=== PATIENT | female | born 1995 | race Hispanic/Latino ===

== ENCOUNTER → 2018-06-19 10:35 | Outpatient (CLI) | payer OTHER, MEDICAID, SELFPAY ==
--- NOTE | 2018-06-19 10:38 | DI.US.S_ITS ---
PROCEDURE: US OB <= 14 WEEKS FETUS INDICATIONS: Initial/Dating US OUTSIDE/PRIOR DATING DATA: Last menstrual period (LMP): 05/04/18. LMP-based estimated date of delivery (MIGNON): 02/08/19. First dating scan (date and location): This examination. Estimated date of delivery (MIGNON) from first dating scan: 02/10/19. TECHNIQUE: Real-time scanning was performed of the fetus and maternal pelvic organs, with image documentation. Endovaginal scanning was also performed to better visualize the fetus and maternal ovaries. COMPARISON: None. FINDINGS: Embryo: Single living intrauterine fetus is present with a heart rate measured 113 beats per minute. Tyhee-rump length measures 3.6 cm, 6 weeks 2 days. Yolk sac visualized. Loree-gestational presumed hypoechoic fluid collection measuring 1.6 x 0.7 x 1.0 cm. Measurement variability in dating: +/- 4 weeks by LMP, +/- 7 days by mean sac diameter (use before 6 weeks gestation if crown-rump length not able to be measured), +/- 5 days by crown-rump length (up to 8 weeks 6 days gestation), +/- 7 days by crown-rump length (up to 13 weeks 6 days gestation). Maternal organs: Ovaries demonstrate multiple right ovarian cystic lesions measuring up to 2.5 x 2.3 x 2.4 cm.. Limited images through the kidneys demonstrate no hydronephrosis. There is nonspecific mild bilateral adnexal free fluid IMPRESSION: Single living intrauterine fetus with gestational age of 6 weeks and 2 days by today's ultrasound measurements, concordant with reported LMP as above. Small loree-gestational hemorrhage. Right ovarian simple appearing follicular change/cyst. Dictated by: Vikas Muir M.D. on 06/19/2018 at 12:25 Approved by: Vikas Muir M.D. on 06/19/2018 at 12:28
== END ==
PROVIDERS: Visit Provider Family Medicine
DX: Z34.81 Encounter for supervision of other normal pregnancy, first trimester (principal); Z3A.01 Less than 8 weeks gestation of pregnancy
CPT/HCPCS: 76801; 76817

== ENCOUNTER → 2018-06-23 11:53 | Outpatient (CLI) | payer OTHER, MEDICAID, SELFPAY ==
[2018-06-23 12:46] LABS: Appearance Urine UA CLEAR; Bilirubin Urine UA NEGATIVE (NEGATIVE); Color Urine UA YELLOW; Glucose Urine UA NEGATIVE (Negative); Ketones Urine UA NEGATIVE (NEGATIVE); Leukocyte Esterase Urine UA NEGATIVE (NEGATIVE); Nitrite Urine UA NEGATIVE (Negative); Occult Blood Urine UA NEGATIVE (Negative); Protein Urine UA NEGATIVE (Negative); Specific Gravity Urine UA 1.015 (1.000-1.035); Urobilinogen Urine UA 0.2 E.U./dL (0.2)
[2018-06-23 12:55] LABS: Add Manual Diff / Slide Review NO; Basophils Absolute Auto 0 /uL (0-100); Basophils Percent Auto 0.4 % (0-2); Eosinophils Absolute Auto 100 /uL (0-450); Eosinophils Percent Auto 1.3 % (2-4); Hemoglobin 12.6 g/dL (12.0-16.0); Lymphocytes Absolute Auto 1700 /uL (1100-4500); Lymphocytes Percent Auto 30.5 % (25-40); Mean Corpuscular HGB Conc 33.3 % (30-36); Mean Corpuscular Hemoglobin 27.4 PG (26-34); Mean Corpuscular Volume 82.2 fL (80-100); Monocytes Absolute Auto 400 /uL (0-900); Monocytes Percent Auto 7.7 % (3-14); Neutrophils Absolute Auto 3400 /uL (1500-7000); Neutrophils Percent Auto 60.1 % (50-75); Platelet Count 273 X10^3/uL (150-400); Red Blood Cell Count 4.62 X10^6/uL (4.0-5.2); Red Cell Distribution Width 16.2 % (11.6-14.8); White Blood Cell Count 5.6 X10^3/uL (4.5-11.0)
[2018-06-23 16:20] LABS: Hepatitis B Surface Antigen NEGATIVE s/c (NEGATIVE)
[2018-06-23 16:35] LABS: HIV 1 and 2 Antibody NEGATIVE (NEGATIVE); Hep C Virus Ab w/Reflex Quant NEGATIVE s/c (NEGATIVE)
[2018-06-25 14:03] LABS: RPR Screen Nonreactive (Nonreactive)
[2018-06-26 16:20] LABS: Varicella IgG Antibody < 135.00 Index (< 135.00)
== END ==
PROVIDERS: Visit Provider Family Medicine
DX: Z34.81 Encounter for supervision of other normal pregnancy, first trimester (principal)
CPT/HCPCS: 36415; 80055; 81003; 86703; 86787; 86803; 86850; 86900; 86901; 87086

== ENCOUNTER → 2018-09-02 11:47 | Outpatient (CLI) | payer OTHER, MEDICAID, SELFPAY ==
[2018-09-08 11:15] LABS: AFP, Serum 23.3 ng/mL; Calc Gestational Age 17.3; Cigarette Smoker NOT GIVEN; Donated Egg NOT GIVEN; Donor Egg Age NOT GIVEN; Estriol, Free 0.95 ng/mL; Inhibin A, Dimeric 92 pg/mL; Maternal Ethnicity HISPANIC; Maternal Weight 140 lbs; Number of Fetuses NOT GIVEN; Previous Pregnancy Down Syndro NOT GIVEN; hCG, MoM 1.28; hCG, Serum 36.4 IU/mL
== END ==
PROVIDERS: Visit Provider Family Medicine
DX: Z34.82 Encounter for supervision of other normal pregnancy, second trimester (principal); Z3A.16 16 weeks gestation of pregnancy
CPT/HCPCS: 36415; 82105; 82677; 84702; 86336

== ENCOUNTER → 2018-09-23 14:49 | Outpatient (CLI) | payer OTHER, MEDICAID, SELFPAY ==
--- NOTE | 2018-09-23 | DI.US.S_ITS ---
PROCEDURE: US OB >= 14 WEEKS FETUS INDICATIONS: 20 WEEK ANATOMICAL SURVEY OUTSIDE/PRIOR DATING DATA: Last menstrual period (LMP): 05/04/18. LMP-based estimated date of delivery (MIGNON): 02/08/19. First dating scan (date and location): This examination. Estimated date of delivery (MIGNON) from first dating scan: 02/10/19.. TECHNIQUE: Real-time scanning was performed of the fetus, with image documentation and biometric measurements. Endovaginal scanning: No COMPARISON: None. FINDINGS: General: A single living intrauterine gestation is present. Presentation: Vertex. Placenta: Placental position is posterior, and low lying with the inferior margin of placenta roughly 2.7 cm above the internal cervical os. Amniotic fluid index: 15.1 cm, normal range is 5-24 cm. heart rate: 157 beats per minute. Maternal cervical canal: 4.4 cm long. Normal lower limit is 2.5 cm. biometrics: Biparietal diameter: 19 weeks 5 days Head circumference: 19 weeks 5 days Abdominal circumference: 20 weeks 1 day Femur length: 20 weeks 0 days Estimated gestational age from initial scan: 20 weeks Composite gestational age from present scan: 19 weeks 6 days Estimated weight and percentile: 327 g; 46 percentile Measurement variability for biometric dating: +/- 7 days from 14 weeks to 15 weeks 6 days gestation, +/- 10 days from 16 weeks to 21 weeks 6 days gestation, +/- 2 weeks from 22 weeks to 27 weeks 6 days gestation, +/- 3 weeks for 28 weeks gestation or later. weight reference: 4500 g or EFW >90/95% is considered macrosomia or large for gestational age. EFW <10% is small for gestational age. EFW 5% or less is considered intra-uterine growth restriction. Anatomic survey: Neuro: Ventricles are non-dilated at less than 10 mm. Cisterna magna is normal at 3-11 mm. Cerebellum is normal in size and morphology. Nuchal skin fold: Normal at less than 6 mm between 14-21 weeks gestational age. Face: Nose and lips, facial profile are normal. Spine: No evidence for spina bifida. Heart: 4-chambered heart is present, with normal ventricular outflow tracts. Diaphragm: Diaphragm is intact. Stomach: Left-sided stomach is present. Kidneys: No hydronephrosis. Normal is less than 5 mm in 2nd trimester, less than 7 mm in 3rd trimester. Cord: 3-vessel cord has orthotopic insertion. Marginal placental cord insertion site. Bladder: Normal in size. Extremities: All 4 extremities identified. IMPRESSION: 1. Single living IUP redemonstrated and interval growth is normal. 2. Normal exam. anatomic survey. 3. Low lying placenta. Followup recommended. 4. Marginal placental cord insertion site. 5. Nuchal cord noted. Dictated by: Basilio Emmanuel [facility] Interpreted: Sabas Fang MD on 09/23/2018 at 17:38 Approved by: Sabas Fang M.D. on 09/23/2018 at 18:11
== END ==
PROVIDERS: Visit Provider Family Medicine
DX: Z36.89 Encounter for other specified antenatal screening (principal); Z3A.19 19 weeks gestation of pregnancy
CPT/HCPCS: 76811

== ENCOUNTER → 2018-11-11 12:13 | Outpatient (CLI) | payer OTHER, MEDICAID, SELFPAY ==
--- NOTE | 2018-11-11 12:16 | DI.US.S_ITS ---
PROCEDURE: US OB LIMITED INDICATIONS: EVALUATE PLACENTAL POSITION OUTSIDE/PRIOR DATING DATA: Last menstrual period (LMP): 05/04/18. LMP-based estimated date of delivery (MIGNON): 02/08/19. First dating scan (date and location): 06/19/18. Estimated date of delivery (MIGNON) from first dating scan: 02/10/19. TECHNIQUE: Real-time scanning was performed of the fetus, with image documentation and biometric measurements. Endovaginal scanning: No COMPARISON: [facility], OB <= 14 WEEKS FETUS, 06/19/2018, 10:51. [facility], OB >= 14 WEEKS FETUS, 09/23/2018, 14:58. FINDINGS: General: A single living intrauterine gestation is present. Presentation: Vertex. Placenta: Placental position is posterior, without previa. Amniotic fluid index: 14.8 cm, normal range is 5-24 cm. heart rate: 149 beats per minute. Maternal cervical canal: 3.7 cm long. Normal lower limit is 2.5 cm. Marginal placental cord insertion with the cord insertion site roughly 2.8 cm from the placental margin. IMPRESSION: Single living IUP redemonstrated and low-lying placenta has resolved with the inferior margin of the placenta 3.4 cm above the internal cervical os. Marginal placental cord insertion redemonstrated. Dictated by: Basilio Emmanuel [facility] Interpreted: Perri Bullock MD on 11/11/2018 at 14:12 Approved by: Perri Bullock M.D. on 11/11/2018 at 14:42
== END ==
PROVIDERS: Visit Provider Family Medicine
DX: O44.42 Low lying placenta NOS or without hemorrhage, second trimester (principal); Z3A.22 22 weeks gestation of pregnancy
CPT/HCPCS: 76815

== ENCOUNTER → 2018-11-17 12:07 | Outpatient (CLI) | payer OTHER, MEDICAID, SELFPAY ==
[2018-11-17 13:56] LABS: Hematocrit 31.9 % (36-46); Hemoglobin 11.2 g/dL (12.0-16.0)
[2018-11-17 14:20] LABS: GTT (PREG) 1 Hour PP 50gm Dose 98 mg/dL (76-139)
== END ==
PROVIDERS: Visit Provider Family Medicine
DX: O26.899 Other specified pregnancy related conditions, unspecified trimester (principal); Z3A.28 28 weeks gestation of pregnancy; Z67.91 Unspecified blood type, Rh negative
CPT/HCPCS: 36415; 82950; 85014; 85018; 86850

== ENCOUNTER → 2019-01-13 11:10 | Outpatient (CLI) | payer OTHER, MEDICAID, SELFPAY ==
[2019-01-14 11:53] LABS: Strep Grp B PCR NEG for Grp B Strep
== END ==
PROVIDERS: PCP Internal Medicine; Visit Provider Family Medicine
DX: Z34.90 Encounter for supervision of normal pregnancy, unspecified, unspecified trimester (principal); Z3A.36 36 weeks gestation of pregnancy
CPT/HCPCS: 87653

== ENCOUNTER 2019-02-13 12:40 | Outpatient (CLI) | payer OTHER, MEDICAID, SELFPAY ==
--- NOTE | 2019-02-13 13:41 | P.TNLD_ITS ---
Visit Information Visit Information Date of evaluation: 02/13/19 Primary OB Provider: Lata Munoz Reason for Evaluation: Yes non-stress test non-stress test reason: other (Postdates) [facility] Social History Smoking Status: Former smoker Exam Vital Signs (past 8 hours): T 36.3 BP 126/79 HR 90 Evaluation Evaluation Baseline heart rate: 130 Variability: Moderate (11-25) monitor accelerations: Present monitor decelerations: Absent Category of Tracing: I Diagnosis, Plan/Disposition Final Diagnosis (1) 40 weeks gestation of : Current Visit: Yes Status: Deleted Plan/Disposition Plan: Reactive NST for postdates. Follow up for induction 02/16/19.
== END 2019-02-13 13:52 | disposition home or self-care (01) ==
LOC: OB 02-16 11:24
PROVIDERS: PCP Internal Medicine; Visit Provider Family Medicine
DX: O48.0 Post-term pregnancy (principal); Z3A.40 40 weeks gestation of pregnancy
CPT/HCPCS: 59025; G0378; G0379

== ENCOUNTER 2019-02-14 18:46 | Inpatient (IN) | payer OTHER, MEDICAID, SELFPAY ==
[2019-02-14 20:21] VITALS: BP 132/83
--- NOTE | 2019-02-14 20:24 | P.HPOB_ITS ---
OB HPI Date/Time Date of admission: 02/14/19 Date Patient Seen: 02/14/19 Time Patient Seen: 19:50 History of Present Condition Chief complaint: eval of labor : 2 Para: 1 Estimated Date of Delivery: 02/08/19 Estimated Gestational Age (weeks): 40w6d Narrative: Mikey Juarez is a 24 year old at 40 weeks and 6 days gestation. Contractions began at approximately 6 AM but increased in intensity at 5 PM today. No loss of fluid or bleeding at home. Uncomplicated with normal labs and ultrasounds. Dating by LMP confirmed with first trimester US. Patient is O negative and received Rhogam at 29 weeks gestation. Declined influenza vaccine and Tdap. Rubella and varicella non-immune. History of Present care: good care, initiated at week # (9), number of visits (14) and pounds weight gain (30) Dating criteria: LMP confirmed by 1st trimester US Ultrasounds: normal 1st trimester US and normal mid trimester US Obstetrical complications: none Medical complications: none Preadmission Labs Blood type: 0 (-) negative -: Antibody screen: negative, GBS status: negative, HBsAG: negative, HIV: negative and RPR/VDLR: negative -: Chlamydia screen: not detected and Gonorrhea screen: not detected -: Rubella: not immune and Varicella: not immune HCT: 38.0 HCAB: negative PAP: Normal Quad screen: Normal 1 hr GTT: 98 Prior (ies) History: 04/18/2016 at 40 weeks, 8 lbs 6 oz male, breast fed 21 months. Evaluation Evaluation Variability: Moderate (11-25) monitor accelerations: Present monitor decelerations: Absent Contraction Frequency (minutes): 1 Uterine Contraction Intensity: Strong/Firm Category of Tracing: I Cervical dilation (cm): 10 Cervical effacement (%): 100 station: 0 PFSH Social History Smoking Status: Never smoker Meds Home Medications and Allergies Home Medications Medication Instructions Recorded Confirmed Type VIT/IRON FUMARATE/FA 1 tab OR Q DAY #0 04/17/16 02/14/19 History (MYNATAL-Sera CAPTAB) Allergies Allergy/AdvReac Type Severity Reaction Status Date / Time No Known Drug Allergies Allergy Unknown Verified 02/14/19 20:22 [NO KNOWN DRUG ALLERGIES] Review of Systems Constitutional Constitutional: Denies fever(s) and Denies headache(s) ENT Ears, Nose, Mouth, and Throat: No headache(s) Cardiovascular Cardiovascular: Denies shortness of breath Respiratory Respiratory: Denies cough and Denies dyspnea Neurologic Neurologic: Denies headache(s) Exam Vital Signs (past 8 hours): - 02/14/19 20:21 Blood Pressure 132/83 Const General: healthy appearing and in distress [facility] Head: normal to inspection Ears: hearing grossly normal bilaterally Nose: external nose normal Face and sinus: normal facial exam Mouth: oral mucosae normal Eyes General: appearance normal, both eyes and all related structures Neck Neck: normal visual inspection Resp Effort & Inspection: normal respiratory effort Cardio Rate: regular rate Rhythm: regular rhythm GI Other: Gravid External Female Exam: external appearance normal Manual OB Exam: dilated 10, effaced fully and station 0 Presentation: vertex Estimated Weight (lbs): 8 Back/Spine/Pelvis Back: normal to inspection Skin General: no rashes or lesions noted Extrem General: normal to inspection and no pedal edema Assessment and Plan Assessment and Plan Assessment and Plan narrative: 24 year old at 40 weeks and 6 days gestation in active labor. GBS negative. Expectant management. Patient declines epidural.
[2019-02-14 20:30] LABS: Add Manual Diff / Slide Review NO; Basophils Absolute Auto 0 /uL (0-100); Basophils Percent Auto 0.3 % (0-2); Eosinophils Absolute Auto 100 /uL (0-450); Eosinophils Percent Auto 0.8 % (2-4); Hematocrit 38.1 % (36-46); Hemoglobin 13.2 g/dL (12.0-16.0); Lymphocytes Absolute Auto 2000 /uL (1100-4500); Lymphocytes Percent Auto 18.3 % (25-40); Mean Corpuscular HGB Conc 34.7 % (30-36); Mean Corpuscular Hemoglobin 31.1 PG (26-34); Mean Corpuscular Volume 89.7 fL (80-100); Monocytes Absolute Auto 900 /uL (0-900); Monocytes Percent Auto 8.3 % (3-14); Neutrophils Absolute Auto 7800 /uL (1500-7000); Neutrophils Percent Auto 72.3 % (50-75); Platelet Count 175 X10^3/uL (150-400); Red Blood Cell Count 4.24 X10^6/uL (4.0-5.2); Red Cell Distribution Width 15.6 % (11.6-14.8); White Blood Cell Count 10.8 X10^3/uL (4.5-11.0)
--- NOTE | 2019-02-14 20:38 | PM.OBPRVD ---
Labor & Delivery Delivery date: 02/14/19 Delivery monitor: external FHT Route of delivery: L&D Laceration Description: None Estimated blood loss (mL): 200 Anesthesia type: None Narrative: BRIEF HISTORY: Patient is a 24-year-old at 40 weeks and 6 days gestation who gave on 02/14/19 at 20:01. MIGNON: 02/08/19 Hospital problems: 40 weeks of STAGE I: Labor Patient reports contractions began at approximately 6 AM on 02/14/19. She was 5-6 cm on admission at 19:00 and complete at 19:50. FHT were category 1 throughout stage 1. No analgesia for labor. STAGE II: Delivery Spontaneous vaginal delivery occurred at 20:05 with rupture of membranes at the time of delivery. Presentation was vertex and TRESSA. Infant was immediately placed on mother's abdomen. Cord was clamped and cut after one minute delay. Apgars 7 and 9. No resuscitation of the required. STAGE III: Placenta/Cord Placental delivered at 20:10 after active management and appeared intact with a 3 vessel cord. IM pitocin given after delivery of placenta. There were very superficial bilateral labial lacerations which were not repaired. Complications: None. Fundus firm at umbilicus. Hemostasis achieved. EBL: 200 mL. Needle and sponge counts were correct. The vagina was inspected and no items were left in situ. Patient was doing well with her and at bedside. [place] Baby 1: gender: Male Presentation: vertex position: Right Occiput Anterior Placenta delivery description: Spontaneous cord vessel description: 3 Vessels score (1 min): 8 score (5 min): 9
[2019-02-14] MEDS: OXYTOCIN 10 UNIT/ML VIAL 20 UNIT (20:53)
[2019-02-14] MEDS: IBUPROFEN 600 MG TABLET PO (20:53)
[2019-02-15] MEDS: IBUPROFEN 600 MG TABLET PO ×4 (03:01→23:03)
[2019-02-15] MEDS: PRENATAL VIT,CALC/IRON/FOLIC 1 TABLET 1 TAB PO (08:31)
[2019-02-15] MEDS: DOCUSATE 100 MG CAPSULE PO (08:31)
[2019-02-15 11:08] LABS: Hematocrit 36.7 % (36-46); Hemoglobin 12.7 g/dL (12.0-16.0)
--- NOTE | 2019-02-15 13:39 | PM.OBDS.1 ---
Discharge Providers Provider Date of admission: 02/14/19 18:46 Discharge Date: 02/15/19 Primary care physician: Casi Garcia Consults: 02/15/19 20:23 Consult to Auto Body Service Mechanic Routine Comment: Discharge provider: Lata Munoz DO Summary Hospital Course Date Patient Seen: 02/15/19 Time Patient Seen: 13:39 Procedures: Spontaneous vaginal delivery Hospital Course: Patient is a 24-year-old G2 now P2 day 1 after uncomplicated spontaneous vaginal delivery at 40 weeks and 6 days gestation on 02/14/19 at 8:05 p.m.. was uncomplicated. She is O negative and received RhoGAM during the . course unremarkable. Bleeding is reportedly light to moderate. Pain controlled with ibuprofen only. Breast-feeding going very well without concerns in the . No issues with bowel or bladder. Patient is ambulating, eating and passing flatus. Patient was advised to call for fevers, severe pain or bleeding through more than a pad an hour. She will follow up in clinic in 6 weeks. Peripartum Data Delivery Method: Natural Vaginal Laceration description: None complications: none [place] 1: Gender: Male Disposition of : home Discharge Diagnosis (1) 40 weeks gestation of : Status: Acute (2) Normal spontaneous vaginal delivery: Status: Acute (3) Rh negative status during : Status: Acute Time Spent with Patient Time attestation: Total time spent providing and/or coordinating discharge services: Objective Labs Result Diagrams: 02/15/19 10:57 Labs: Laboratory Results - last 24 hr 02/14/19 02/14/19 02/15/19 19:15 19:15 10:57 WBC 10.8 RBC 4.24 Hgb 13.2 Hct 38.1 MCV 89.7 MCH 31.1 MCHC 34.7 RDW 15.6 H Plt Count 175 Neut % (Auto) 72.3 Lymph % (Auto) 18.3 L [place] % (Auto) 8.3 Eos % (Auto) 0.8 L Baso % (Auto) 0.3 Neut # (Auto) 7800 H Lymph # (Auto) 2000 [place] # (Auto) 900 Eos # (Auto) 100 Baso # (Auto) 0 Blood Type O Negative Antibody Screen Negative Maternal Bleed Negative 02/15/19 10:57 WBC RBC Hgb 12.7 Hct 36.7 MCV MCH MCHC RDW Plt Count Neut % (Auto) Lymph % (Auto) [place] % (Auto) Eos % (Auto) Baso % (Auto) Neut # (Auto) Lymph # (Auto) [place] # (Auto) Eos # (Auto) Baso # (Auto) Blood Type Antibody Screen Maternal Bleed Exam Vital Signs (past 8 hours): Temperature 98.6? blood pressure 116/69 heart rate 90 respirations 17 Narrative Exam Narrative: General: Awake and alert, no acute distress. HEENT: NCAT, EOMI, moist oral mucosa CV: Regular rate and rhythm, no murmurs, rubs or gallops Lungs: CTAB, no wheezes, rales, or rhonchi Abdomen: Soft, nontender; bowel tones active; uterus firm 1 cm below umbilicus Extremities: Warm, no edema, 2+ pedal pulses bilaterally Discharge Plan Discharge Plan Patient Disposition: Home Discharge comment: Call for fevers, severe pain or bleeding through more than a pad an hour period Discharge orders & Medications Prescriptions: New docusate sodium [DOK] 100 mg Capsule 100 mg PO DAILY Qty: 30 RF: 0 ibuprofen 600 mg Tablet 600 mg PO Q6HR PRN (Reason: Pain, Mild (1-3)) Qty: 30 RF: 0 Continued VIT/IRON FUMARATE/FA (MYNATAL-Z CAPTAB) 1 tab OR Q DAY Qty: 0 RF: 0 Follow up/Referrals: Casi Garcia [Primary Care Provider] - Visit Report/Discharge Packet Visit Report Forms: Patient Portal/API, Stroke Signs & Symptoms Discharge Data Primary Care Provider: Casi Garcia Attending Provider: Shantelle Flynn Admit Date/Time: 02/14/19 18:46
[2019-02-15 17:04] VITALS: TEMP 36.8
[2019-02-16] MEDS: IBUPROFEN 600 MG TABLET PO (04:55)
--- NOTE | 2019-02-16 08:46 | PM.OBDS.1 ---
Discharge Providers Provider Date of admission: 02/14/19 18:46 Discharge Date: 02/16/19 Primary care physician: Casi Garcia Consults: 02/15/19 20:23 Consult to Fitting Room Associate Routine Comment: Discharge provider: DO Ray Stephenson Hospital Course Date Patient Seen: 02/16/19 Time Patient Seen: 08:15 Hospital Course: Patient is a 24-year-old G2 now P2 after uncomplicated spontaneous vaginal delivery. Patient stayed an additional night because of jaundice in the . She will discharge home today. Bleeding is light. Pain controlled with ibuprofen only. She is eating, ambulating, voiding and passing flatus. Patient was advised to call for fevers, severe pain or bleeding through more than a pad an hour. She will follow up in clinic in 6 weeks. Peripartum Data Infant Delivery Method: Natural Vaginal Laceration description: None complications: none Discharge Diagnosis (1) 40 weeks gestation of : Status: Acute (2) Normal spontaneous vaginal delivery: Status: Acute (3) Rh negative status during : Status: Acute Time Spent with Patient Time attestation: Total time spent providing and/or coordinating discharge services: Objective Labs Result Diagrams: 02/15/19 10:57 Labs: Laboratory Results - last 24 hr 02/15/19 02/15/19 10:57 10:57 Hgb 12.7 Hct 36.7 Maternal Bleed Negative Exam Vital Signs (past 8 hours): Temperature 98.8? blood pressure 108/65 heart rate 80 respirations 16 Narrative Exam Narrative: General: Awake and alert, no acute distress. HEENT: NCAT, EOMI, moist oral mucosa CV: Regular rate and rhythm, no murmurs, rubs or gallops Lungs: CTAB, no wheezes, rales, or rhonchi Abdomen: Soft, nontender; bowel tones active; uterus firm 1 cm below umbilicus Extremities: Warm, no edema, 2+ pedal pulses bilaterally Discharge Plan Discharge Plan Patient Disposition: Home Discharge comment: Call for fevers, severe pain or bleeding through more than a pad an hour period Discharge orders & Medications Prescriptions: New docusate sodium [DOK] 100 mg Capsule 100 mg PO DAILY Qty: 30 RF: 0 ibuprofen 600 mg Tablet 600 mg PO Q6HR PRN (Reason: Pain, Mild (1-3)) Qty: 30 RF: 0 Continued VIT/IRON FUMARATE/FA (MYNATAL-Z CAPTAB) 1 tab OR Q DAY Qty: 0 RF: 0 Follow up/Referrals: Casi Garcia [Primary Care Provider] - None Lata Munoz DO [Family Provider] - 6 Weeks (Your 6 week appt will be scheduled tomorrow 02/17 ) Visit Report/Discharge Packet Stand Alone Forms: Discharge: Care Visit Report Forms: Patient Portal/API, Stroke Signs & Symptoms Discharge Data Primary Care Provider: Casi Garcia Attending Provider: Shantelle Flynn Admit Date/Time: 02/14/19 18:46
[2019-02-16 08:52] VITALS: BP 132/83; TEMP 36.8
[2019-02-16] MEDS: RHO(D) IMMUNE GLOBULIN 1,500 UNIT SYRINGE 1500 UNIT IM (10:16)
== END 2019-02-16 10:45 | disposition home or self-care (01) | DRG 807 ==
PROVIDERS: Admitting Provider Obstetrics & Gynecology; Family Provider Family Medicine; PCP Internal Medicine; Visit Provider Obstetrics & Gynecology
DX: O48.0 Post-term pregnancy (principal); Z37.0 Single live birth; O70.0 First degree perineal laceration during delivery; Z3A.40 40 weeks gestation of pregnancy
CPT/HCPCS: 36415; 59025; 59050; 59400; 85014; 85018; 85025; 85461; 86850; 86900; 86901; G0379; J2590; J2790

== ENCOUNTER 2020-09-14 14:40 | Emergency (ER) | payer OTHER, MEDICAID, SELFPAY ==
[2020-09-14 14:46] VITALS: BP 135/79; PULSE 71; RESP 16; TEMP 37.1; O2SAT 97; BMI 27.3
--- NOTE | 2020-09-14 15:46 | ED.PREGNANCY ---
HPI - General Chief complaint: OB/Uterine Contractions Stated complaint: , has bleeding and discomfort, started Sun Time Seen by Provider: 09/14/20 14:43 Source: patient and family Mode of arrival: Ambulatory Limitations: no limitations History of Present Illness HPI Narrative: 25-year-old female nonsmoker with noncontributory medical history is a in about 6 weeks that presents with a chief complaint of some spotting and cramping over the past few days. Is not dizzy nor weak or lightheaded. She denies any fever or chills. She has no chest pain or shortness of breath. She states she has cramping only and not a unilateral persistent pain. She denies any heavy bleeding and certainly is not saturating more than 1 pad per hour or even close. She has no dysuria, frequency or urgency. MD Complaint: vaginal bleeding Onset (ago): day(s) Pain Consistency: intermittent Location: pelvis Severity: mild Quality: Cramping Relieving factors: none Exacerbating factors: none Associated symptoms: denies other symptoms Vaginal bleeding: light Related Data Home Medications Medication Instructions Recorded Confirmed VIT/IRON FUMARATE/FA 1 tab OR Q DAY #0 04/17/16 02/14/19 (MYNATAL-Z CAPTAB) Previous Rx's Medication Instructions Recorded docusate sodium [DOK] 100 mg PO DAILY #30 cap 02/15/19 ibuprofen 600 mg PO Q6HR PRN #30 tab 02/15/19 norgestimate 0.25 mg-ethinyl 1 tab PO DAILY #84 tab 03/22/20 estradiol 35 mcg tablet Allergies Allergy/AdvReac Type Severity Reaction Status Date / Time No Known Drug Allergies Allergy Unknown Verified 02/14/19 20:22 [NO KNOWN DRUG ALLERGIES] Review of Systems Constitutional Constitutional: Denies chills, Denies fatigue, Denies fever(s), Denies frequent falls, Denies lethargy and Denies weakness Eyes Eyes: Denies change in vision, Denies eye discharge, Denies irritation and Denies loss of vision ENT Ears, Nose, Mouth, and Throat: Denies change in voice, Denies dizziness, Denies neck pain, Denies sore throat and Denies throat swelling Cardiovascular Cardiovascular: Denies chest pain, Denies irregular heart rhythm, Denies lightheadedness, Denies palpitations, Denies dyspnea, Denies dyspnea on exertion and Denies orthopnea Respiratory Respiratory: Denies cough, Denies dyspnea, Denies dyspnea on exertion and Denies wheezing Gastrointestinal Gastrointestinal: Denies abdominal pain, Denies change in bowel habits, Denies diarrhea, Denies nausea and Denies vomiting Genitourinary Genitourinary: Reports abnormal vaginal bleeding Musculoskeletal Musculoskeletal: Denies neck pain and Denies numbness Integumentary/Breasts Skin/Breast: Denies pruritus, Denies erythema, Denies rash and Denies wounds Neurologic Neurologic: Denies behavioral changes, Denies confusion, Denies dizziness, Denies frequent falls, Denies loss of vision, Denies numbness and Denies weakness Psychiatric Psychiatric: Denies anxiety, Denies behavioral changes, Denies confusion, Denies depression, Denies homicidal ideation and Denies suicidal ideation Endocrine Endocrine: Denies fatigue, Denies flushing and Denies palpitations Hematologic/Lymphatic Hematologic/Lymphatic: Denies easy bruising Allergic/Immunologic Allergic/Immunologic: Denies urticaria, Denies throat swelling and Denies wheezing Exam Narrative Exam Narrative: GENERAL: [25] year old patient appears stated age. Well-developed patient, in mild distress. HEAD: Atraumatic. Normocephalic. EYES: Pupils equal round and reactive. Extraocular motions intact. No scleral icterus. No injection or drainage. ENT: Nose without bleeding, purulent drainage. Throat without erythema, tonsillar hypertrophy or exudate. Airway patent. NECK: Trachea midline. Non tender CARDIOVASCULAR: Regular rate and rhythm without murmurs, gallops, or rubs. RESPIRATORY: Clear to auscultation. Breath sounds equal bilaterally. No wheezes, rales, or rhonchi. GASTROINTESTINAL: Abdomen soft, non-tender, nondistended. EXTREMITIES: No edema or joint tenderness. BACK: Nontender without deformity or crepitance. No flank tenderness. NEURO: AOx3. SKIN: No rash or erythema of visible areas Initial Vital Signs Initial Vital Signs: Vital Signs Temperature 98.7 F 09/14/20 14:46 Pulse Rate 71 09/14/20 14:46 Respiratory Rate 16 09/14/20 14:46 Blood Pressure 135/79 09/14/20 14:46 Pulse Oximetry 97 09/14/20 14:46 Course Orders Ordered: ED Orders 09/14/20 15:56 ABO RH Type Stat HCG Quantitative /Beta subunit Stat 09/14/20 16:37 OB <= 14 weeks fetus Stat Discontinued Medications Rho Immune Globulin (Rho(D) Immune Globulin 1,500 Unit Syringe) 1,500 unit IM NOW ONE Stop: 09/14/20 18:04 Last Admin: 09/14/20 18:29 Dose: 1,500 unit Documented by: Vital Signs Vital signs: Vital Signs - 8 hr 09/14/20 14:46 09/14/20 17:17 Temperature 98.7 F Pulse Rate 71 83 Respiratory Rate 16 14 Blood Pressure 135/79 129/69 Pulse Oximetry 97 100 MDM - OB/Uterine Contractions Lab Data Labs: Lab Results 09/14/20 09/14/20 Range/Units 15:56 15:56 HCG, Quant 3001.0 mIU/mL Blood Type O Negative Point of Care Testing Test Results Positive Urine Dip Bedside Urine Glucose Negative Bedside Urine Bilirubin - Negative Bedside Urine Ketone - Negative Urine Specific [place] 1.030 Bedside Urine Occult Blood - Negative Bedside Urine pH 6.0 Bedside Urine Protein - Negative Bedside Urine Urobilinogen - Negative Bedside Urine Nitrite - Negative Bedside Urine Leukocytes - Negative Esterase Discharge Plan Departure Patient Disposition: Home Clinical Impression: Abnormal vaginal bleeding Rh negative status during Qualifiers: Trimester: first trimester Qualified Code(s): O26.891 - Other specified related conditions, first trimester Instructions: DI for Miscarriage Activity Restrictions/Additional Instructions: *You have been diagnosed with [vaginal bleeding in 1st trimester, there is no evidence of ectopic but some suggestion that this could be early miscarriage] *What to do: *Please continue to take your regular medications as directed. [ ] New medication prescriptions sent to your pharmacy: [ ] [ ] New medication written as a paper prescription [ ] No new medications given *Please follow up with your OB provider in 2-3 days, call for an appointment. Let them know you were seen in the Emergency Department and that we ask that you be seen in follow up. We will electronically transmit a record of today's note if your PCP is in our system *If you do not have a primary care provider please contact the [facility] Resource line at [phone]. They will ask some questions about your medical history and help get you set up with a doctor in the community. *Return to Emergency Department if you should have any new, worsening or concerning symptoms, such as [fever greater than 101 F, shaking chills, worsening pain, persistent vomiting or other bothersome symptoms] Prescriptions: No Action VIT/IRON FUMARATE/FA (MYNATAL-Z CAPTAB) 1 tab OR Q DAY Qty: 0 RF: 0 norgestimate-ethinyl estradiol [Sprintec (28)] 0.25-35 mg-mcg tablet 1 tab PO DAILY Qty: 84 RF: 3 docusate sodium [DOK] 100 mg Capsule 100 mg PO DAILY Qty: 30 RF: 0 ibuprofen 600 mg Tablet 600 mg PO Q6HR PRN (Reason: Pain, Mild (1-3)) Qty: 30 RF: 0 Referrals: Casi Garcia MD [Primary Care Provider] - Lata Munoz DO [Family Provider] -
--- NOTE | 2020-09-14 16:37 | DI.US.S_ITS ---
PROCEDURE: US OB <= 14 WEEKS FETUS INDICATIONS: at 6 weeks, with spotting and cramping OUTSIDE/PRIOR DATING DATA: Last menstrual period (LMP): 07/25/2020. LMP-based estimated date of delivery (MIGNON): 04/13/2020. First dating scan (date and location): Not applicable Estimated date of delivery (MIGN[place]) from first dating scan: Not applicable TECHNIQUE: Real-time scanning was performed of the fetus and maternal pelvic organs, with image documentation. Endovaginal scanning was also performed to better visualize the fetus and maternal ovaries. COMPARISON: None from this FINDINGS: Embryo: An intrauterine gestational sac is seen, with a mean gestational sac diameter of 5 mm, which corresponds to an estimated gestational age of 5 weeks 2 days. No contents can be seen at this time. No pole is seen. No heartbeat is detected. Measurement variability in dating: +/- 4 weeks by LMP, +/- 7 days by mean sac diameter (use before 6 weeks gestation if crown-rump length not able to be measured), +/- 5 days by crown-rump length (up to 8 weeks 6 days gestation), +/- 7 days by crown-rump length (up to 13 weeks 6 days gestation). Maternal organs: Ovaries are unremarkable. The endometrial stripe is thickened, hypervascular, and irregular. IMPRESSION: These imaging findings are most compatible with a spontaneous miscarriage in progress. Differential diagnosis includes early normal , yet this is considered to be less likely. Close clinical followup, with serial beta-hCG and serial ultrasound are recommended, if clinically appropriate. Thickened, hypervascular, irregular endometrial stripe. Follow-up ultrasound is recommended. Dictated by: Kaushik Kimble M.D. on 09/14/2020 at 16:31 Approved by: Kaushik Kimble M.D. on 09/14/2020 at 16:34
[2020-09-14 17:17] VITALS: BP 129/69; PULSE 83; RESP 14; O2SAT 100
[2020-09-14] MEDS: RHO(D) IMMUNE GLOBULIN 1,500 UNIT SYRINGE 1500 UNIT IM (18:29)
[2020-09-14 18:44] VITALS: BP 122/81; PULSE 80; RESP 18; O2SAT 100
== END 2020-09-14 18:45 | disposition home or self-care (01) ==
PROVIDERS: Emergency Provider Emergency Medicine; Family Provider Family Medicine; PCP Internal Medicine
DX: O20.9 Hemorrhage in early pregnancy, unspecified (principal); O26.891 Other specified pregnancy related conditions, first trimester; Z3A.01 Less than 8 weeks gestation of pregnancy
CPT/HCPCS: 36415; 76801; 76817; 81003; 81025; 84702; 86900; 86901; 96372; 99283; 99284; J2790

== ENCOUNTER → 2020-09-16 10:27 | Outpatient (CLI) | payer OTHER, MEDICAID, SELFPAY ==
[2020-09-16 12:02] LABS: HCG Quantitative /Beta subunit 4003.9 mIU/mL
== END ==
PROVIDERS: Family Provider Family Medicine; Referring Provider Specialist; Visit Provider Specialist
DX: O20.9 Hemorrhage in early pregnancy, unspecified (principal)
CPT/HCPCS: 36415; 84702

== ENCOUNTER → 2020-12-15 12:24 | Outpatient (CLI) | payer OTHER, MEDICAID, SELFPAY ==
[2020-12-15 13:26] LABS: COVID19 -Nasal RAPID Negative (Negative)
== END ==
PROVIDERS: Family Provider Family Medicine; Visit Provider Nurse Practitioner
DX: Z20.822 Contact with and (suspected) exposure to COVID-19 (principal)
CPT/HCPCS: 87635

== ENCOUNTER 2024-01-14 16:28 | Emergency (ER) | payer MEDICAID, SELFPAY ==
[2024-01-14 16:32] VITALS: BP 161/84; PULSE 83; RESP 18; TEMP 36.9; O2SAT 99; BMI 29.9
--- NOTE | 2024-01-14 17:21 | DI.RAD.S_ITS ---
PROCEDURE: XR CHEST 1V INDICATIONS: chest pain TECHNIQUE: One view of the chest was acquired. COMPARISON: None. FINDINGS: Surgical changes and devices: None. Lungs and pleura: Lungs are clear. No pleural effusions or pneumothorax. Mediastinum: Mediastinal contours appear normal. Heart size is normal. Bones and chest wall: No suspicious bony lesions. Overlying soft tissues appear unremarkable. IMPRESSION: No acute cardiopulmonary abnormality is seen. Dictated by: Rohit Barreto M.D. on 01/14/2024 at 20:04 Approved by: Rohit Barreto M.D. on 01/14/2024 at 20:04
--- NOTE | 2024-01-14 18:32 | EKG_ITS ---
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
[2024-01-14 19:16] LABS: Add Manual Diff / Slide Review NO; Basophils Absolute Auto 0 /uL (0-100); Basophils Percent Auto 0.3 % (0-2); Eosinophils Absolute Auto 200 /uL (0-450); Eosinophils Percent Auto 2.1 % (2-4); Hematocrit 39.2 % (36-46); Hemoglobin 13.4 g/dL (12.0-16.0); Lymphocytes Absolute Auto 1800 /uL (1100-4500); Lymphocytes Percent Auto 22.5 % (25-40); Mean Corpuscular HGB Conc 34.2 % (30-36); Mean Corpuscular Hemoglobin 30.2 PG (26-34); Mean Corpuscular Volume 88.4 fL (80-100); Monocytes Absolute Auto 400 /uL (0-900); Monocytes Percent Auto 5.6 % (3-14); Neutrophils Absolute Auto 5500 /uL (1500-7000); Neutrophils Percent Auto 69.5 % (50-75); Platelet Count 245 X10^3/uL (150-400); Red Blood Cell Count 4.43 X10^6/uL (4.0-5.2); Red Cell Distribution Width 13.6 % (11.6-14.8); White Blood Cell Count 7.9 X10^3/uL (4.5-11.0)
[2024-01-14 19:35] LABS: Pregnancy Test Serum,Qual Negative (Negative)
[2024-01-14 19:36] LABS: Alanine Aminotransferase 51 IU/L (<35); Albumin Globulin Ratio 1.6 (1.0-2.8); Alkaline Phosphatase 69 U/L (38-126); Aspartate Aminotransferase 36 IU/L (14-36); Bilirubin Total 0.4 mg/dL (0.2-1.3); Blood Urea Nitrogen 20 mg/dL (7-17); Calcium 9.7 mg/dL (8.4-10.2); Carbon Dioxide 19 mmol/L (22-32); Chloride 107 mmol/L (98-107); Estimated Glomerular Filt Rate > 60 mL/min (>60); Globulin 3.2 g/dL (1.7-4.1); Glucose 97 mg/dL (70-100); HEMOLYSIS < 15 (0-50); Lipase 77 U/L (23-300); Sodium 141 mmol/L (137-145); Total Protein 8.2 g/dL (6.3-8.2)
[2024-01-14 19:53] VITALS: BP 150/82; PULSE 85; RESP 18; O2SAT 100
[2024-01-14 20:06] LABS: Thyroid Stimulating Hormone 0.705 uIU/mL (0.47-4.68)
[2024-01-14 20:32] VITALS: BP 134/87; PULSE 87; RESP 51; O2SAT 99
--- NOTE | 2024-01-14 20:58 | ED.GENADULT ---
HPI - General Adult General Chief complaint: Dizziness Stated complaint: lightneaded, shaky, heart racing Time Seen by Provider: 01/14/24 20:21 Source: patient Mode of arrival: Ambulatory History of Present Illness HPI narrative: Patient is a 29-year-old female. She was 10 weeks . No history of preeclampsia. Here for evaluation of an episode that occurred today where she became lightheaded and shaky and heart was racing. She was sitting at the time watching her son at a sports practice when the symptoms occurred. No palpitations. No chest pain. She states she actually did not pass out but became lightheaded. Symptoms lasted several minutes and resolved on their own. Right now she was feeling almost back to normal. Did not tried anything for symptoms prior to arrival. Related Data Home Medications Medication Instructions Recorded Confirmed VIT/IRON FUMARATE/FA 1 tab OR Q DAY ##0 04/17/16 12/15/20 (MYNATAL-Z CAPTAB) Previous Rx's Medication Instructions Recorded docusate sodium 100 mg capsule 100 mg PO DAILY #30 caps 02/15/19 (DOK) ibuprofen 600 mg tablet 600 mg PO Q6HR PRN Pain, Mild 02/15/19 (1-3) #30 tabs norgestimate 0.25 mg-ethinyl 1 tab PO DAILY #84 tabs 09/22/20 estradiol 35 mcg tablet (Sprintec (28)) Allergies Allergy/AdvReac Type Severity Reaction Status Date / Time No Known Drug Allergies Allergy Unknown Verified 12/15/20 12:22 [NO KNOWN DRUG ALLERGIES] Review of Systems Review of Systems ROS Unobtainable: All systems reviewed & are unremarkable except as noted in HPI and below Patient History Medical History Normal spontaneous vaginal delivery Social History Smoking Status: Never smoker Smoking Status: Never smoker Substance Use Type: does not use Exam Initial Vital Signs Initial Vital Signs: Vital Signs Temperature 98.4 F 01/14/24 16:32 Pulse Rate 83 01/14/24 16:32 Respiratory Rate 18 01/14/24 16:32 Blood Pressure 161/84 H 01/14/24 16:32 Pulse Oximetry 99 01/14/24 16:32 Oxygen Delivery Method Room Air 01/14/24 16:32 Const General: cooperative, comfortable and No ill appearing [facility] Head: normal to inspection and normocephalic Resp Effort & Inspection: normal respiratory effort Auscultation: clear to auscultation bilaterally Cardio Rate: regular rate Rhythm: regular rhythm Skin General: no rashes or lesions noted Neuro General: patient alert, patient awake, patient oriented x3 and moves all extremities Extrem General: normal to inspection Course Orders Ordered: ED Orders 01/14/24 17:21 XR chest 1V Stat EKG-12 Lead Stat 01/14/24 19:00 Complete Blood Count AUTO DIFF Stat Comprehensive Metabolic Panel Stat Lipase Stat Magnesium Stat Test Serum,Qual Stat TSH [Thyroid Stimulating Hormone] Stat Vital Signs Vital signs: Vital Signs - 8 hr 01/14/24 19:53 01/14/24 20:32 01/14/24 21:16 Temperature 98.2 F Pulse Rate 85 87 65 Respiratory Rate 18 51 H 18 Blood Pressure 150/82 H 134/87 127/85 Pulse Oximetry 100 99 98 Oxygen Delivery Method Room Air Room Air Medical Decision Making Lab Data Lab results reviewed: Yes I reviewed the patient's lab results. 01/14/24 19:00 01/14/24 19:00 Labs: Lab Results 01/14/24 Range/Units 19:00 WBC 7.9 (4.5-11.0) X10^3/uL RBC 4.43 (4.0-5.2) X10^6/uL Hgb 13.4 (12.0-16.0) g/dL Hct 39.2 (36-46) % MCV 88.4 (80-100) fL MCH 30.2 (26-34) PG MCHC 34.2 (30-36) % RDW 13.6 (11.6-14.8) % Plt Count 245 (150-400) X10^3/uL Neut % (Auto) 69.5 (50-75) % Lymph % (Auto) 22.5 L (25-40) % [place] % (Auto) 5.6 (3-14) % Eos % (Auto) 2.1 (2-4) % Baso % (Auto) 0.3 (0-2) % Neut # (Auto) 5500 (2586-9444) /uL Lymph # (Auto) 1800 (7050-4251) /uL [place] # (Auto) 400 (0-900) /uL Eos # (Auto) 200 (0-450) /uL Baso # (Auto) 0 (0-100) /uL Sodium 141 (137-145) mmol/L Potassium 4.0 (3.4-5.1) mmol/L Chloride 107 (98-107) mmol/L Carbon Dioxide 19 L (22-32) mmol/L BUN 20 H (7-17) mg/dL Creatinine 0.74 (0.52-1.04) mg/dL Estimated GFR > 60 (>60) mL/min BUN/Creatinine Ratio 27.0 H (6-22) Glucose 97 (70-100) mg/dL Calcium 9.7 (8.4-10.2) mg/dL Magnesium 2.0 (1.6-2.3) mg/dL Total Bilirubin 0.4 (0.2-1.3) mg/dL AST 36 (14-36) IU/L ALT 51 H (<35) IU/L Alkaline Phosphatase 69 (38-126) U/L Total Protein 8.2 (6.3-8.2) g/dL Albumin 5.0 (3.5-5.0) g/dL Globulin 3.2 (1.7-4.1) g/dL Albumin/Globulin Ratio 1.6 (1.0-2.8) Lipase 77 (23-300) U/L TSH 0.705 (0.47-4.68) uIU/mL Serum , Qual Negative (Negative) Point of Care Testing Test Results Negative Point of care testing: Point of Care Testing Test Results Negative Imaging Data Chest x-ray: Radiologist's Impression: PROCEDURE: XR CHEST 1V INDICATIONS: chest pain TECHNIQUE: One view of the chest was acquired. COMPARISON: None. FINDINGS: Surgical changes and devices: None. Lungs and pleura: Lungs are clear. No pleural effusions or pneumothorax. Mediastinum: Mediastinal contours appear normal. Heart size is normal. Bones and chest wall: No suspicious bony lesions. Overlying soft tissues appear unremarkable. IMPRESSION: No acute cardiopulmonary abnormality is seen. ECG Data Attestation: I personally reviewed and interpreted this ECG as follows: Interpretation: Sinus rhythm Ventricular rate of 99 Normal axis Normal QRS Normal QTC No ST T changes MDM Narrative Medical decision making narrative: Workup here in the emergency department is very reassuring. Not hypertensive. Unremarkable EKG and labs. No signs of infection. Low suspicion for CVA/TIA/ACS or seizure. I had a discussion with the patient regarding her symptoms. Will discharge home with return precautions and follow-up instructions. She expressed understanding and agreement with plan. Discharge Plan Departure Patient Disposition: Home Clinical Impression: Lightheadedness Instructions: DI for Dizziness-Nonvertigo Activity Restrictions/Additional Instructions: Recommend that you continue to take all of your medications as directed. Contact your primary care doctor for a follow-up. Return to the emergency department for new symptoms. Prescriptions: No Action VIT/IRON FUMARATE/FA (MYNATAL-Z CAPTAB) 1 tab OR Q DAY Qty: 0 norgestimate-ethinyl estradiol [Sprintec (28)] 0.25-35 mg-mcg tablet 1 tab PO DAILY Qty: 84 3RF docusate sodium [DOK] 100 mg Capsule 100 mg PO DAILY Qty: 30 0RF ibuprofen 600 mg Tablet 600 mg PO Q6HR PRN (Reason: Pain, Mild (1-3)) Qty: 30 0RF Referrals: Miscellaneous,Doctor, MD [Primary Care Provider] - Stand Alone Forms: Patient Portal/API
[2024-01-14 21:16] VITALS: BP 127/85; PULSE 65; RESP 18; TEMP 36.8; O2SAT 98
== END 2024-01-14 21:17 | disposition home or self-care (01) ==
PROVIDERS: Student in an Organized Health Care Education/Training Program; Emergency Provider Emergency Medicine; Family Provider Family Medicine
DX: R42 Dizziness and giddiness (principal); R07.9 Chest pain, unspecified
CPT/HCPCS: 36415; 71045; 80053; 81025; 83690; 83735; 84443; 84703; 85025; 93005; 99283; 99284